=== PATIENT | female | born 2000 | race American Indian/Alaskan Native ===

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

== ENCOUNTER 2019-10-23 13:34 | Emergency (ER) | payer SELFPAY ==
--- NOTE | 2019-10-23 15:20 | Emergency Department Report ---
Chief Complaint: Urogenital-Female Stated Complaint: STD PAIN Time Seen by Provider: 10/23/19 15:15 - HPI History of Present Illness: This is a 19-year-old female nontoxic, well in appearance with no signs of distress presents to the ED for STD recheck. 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 Stated wants to see if it is still there. Stated has some intermittent vaginal irrigation but other denies any pain or ulcers. Patient stated she is asymptotic. Denies any vaginal discharge, testicular pain, or swelling. Patient denies any urinary symptoms. Patient denies any fever, chills, headache, nausea, vomiting, chest pain or shortness of breathe. denies any other symptoms or complaints. Denies any allergies or PMH. - Exam Vital Signs: Vital Signs 10/23/19 14:49 Temperature 97.9 F Pulse Rate 75 Respiratory 16 Rate Blood Pressure 122/62 O2 Sat by Pulse 100 Oximetry Physical Exam: normal physical exam. no pelvic pain. no abdominal pain. no flank pain. no vaginal discharge. no urianry symptoms. MSE screening note: Focused history and physical exam performed. Due to findings the following was ordered: ED Medical Decision Making - Medical Decision Making This is a 19-year-old female that presents with nonmedical emergency complaint. Patient is just requested for a STD test. Patient is being treated for this condition. Patient denies any symptoms. I gave patient many different referrals to follow-up with STD concerns. Patient was instructed to Follow-up with a primary care doctor in 3-5 days or if symptoms worsen and continue return to emergency room as soon as possible. At time of discharge, the patient does n ot seem toxic or ill in appearance. No acute signs of distress noted. Patient agrees to discharge treatment plan of care. No further questions noted by the patient. ED Disposition for MSE Clinical Impression: Possible exposure to STD Disposition: Z- MED SCREENING EXAM-LEFT Is pt being admited?: No Does the pt Need Aspirin: No Condition: Stable Instructions: Safe Sex (ED) Additional Instructions: Follow-up with a primary care doctor in 3-5 days or if symptoms worsen and continue return to emergency room as soon as possible. Referrals: ELLIE STONE MD [Referring] - 3-5 Days LASHONDA RODRIGUEZ MD [Staff Physician] - 3-5 Days
[2019-10-23 21:27] VITALS: BP 122/62
== END 2019-10-23 15:59 | disposition left against medical advice (07) ==
LOC: ED 13:34
DX: N89.8 Other specified noninflammatory disorders of vagina (principal); Z20.2 Contact with and (suspected) exposure to infections with a predominantly sexual mode of transmission; Z53.21 Procedure and treatment not carried out due to patient leaving prior to being seen by health care provider

== ENCOUNTER 2020-12-24 09:02 | Emergency (ER) | payer MEDICAID, OTHER ==
[2020-12-24 09:20] VITALS: BP 98/50
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
[2020-12-24] MEDS ORDERED: IBUPROFEN 800 MG TAB PO ONE (09:43)
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
== END 2020-12-24 10:45 | disposition home or self-care (01) ==
LOC: ED 09:02
DX: S80.00XA Contusion of unspecified knee, initial encounter (principal); Z98.890 Other specified postprocedural states; V89.2XXA Person injured in unspecified motor-vehicle accident, traffic, initial encounter; Y93.89 Activity, other specified; Y92.89 Other specified places as the place of occurrence of the external cause; Y99.8 Other external cause status
CPT/HCPCS: 99283

== ENCOUNTER 2021-01-21 20:50 | Emergency (ER) | payer MEDICAID ==
[2021-01-21 20:59] VITALS: BP 110/69
--- NOTE | 2021-01-21 21:15 | Emergency Department Report ---
ED General Adult HPI - General Chief complaint: Earache Stated complaint: SINUS/THROAT/EAR ISSUES Time Seen by Provider: 01/21/21 21:04 Source: patient Mode of arrival: Ambulatory Limitations: No Limitations - History of Present Illness Initial comments: 20-year-old immunocompetent female patient presents to the emergency department with complaints of sinus pressure, nasal congestion, and left ear discomfort starting 4 days ago. Patient's younger brother was recently diagnosed with RSV. Patient has been using elderberry syrup with no relief. No current steroid or antibiotic use. No recent travel. Patient is unsure whether or not she may be . Denies neck stiffness, fever, vomiting, rash, sore throat, shortness of breath. Denies all other complaints at this time. - Related Data Previous Rx's Medication Instructions Recorded Last Taken Type Cyclobenzaprine HCl [Flexeril 5 MG 5 mg PO TID PRN #10 tab 12/24/20 Unknown Rx TAB] Fluticasone [Flonase] 1 spray NS QDAY #1 bottle 01/21/21 Unknown Rx Allergies Allergy/AdvReac Type Severity Reaction Status Date / Time No Known Allergies Allergy Verified 01/21/21 21:00 ED Review of Systems ROS: Stated complaint: SINUS/THROAT/EAR ISSUES Other details as noted in HPI Other: GENERAL: Negative for fever. ENT: Positive for sinus pressure, nasal congestion, ear discomfort. CARDIOVASCULAR: Negative for chest pain. PULMONARY: Negative for shortness of breath. GASTROINTESTINAL: Negative for abdominal pain. MUSCULOSKELETAL: Negative for back pain. NEUROLOGICAL: Negative for headache. INTEGUMENTARY: Negative for rash. ED Past Medical Hx - Past Medical History Hx Psychiatric Treatment: Yes (anxiety) Additional medical history: multiple shoulder dislocations - Surgical History Additional Surgical History: June 21, benign mass removed from breast - Social History Smoking Status: Never Smoker Substance Use Type: None - Medications Home Medications: Home Medications Medication Instructions Recorded Confirmed Last Taken Type Cyclobenzaprine HCl [Flexeril 5 MG 5 mg PO TID PRN #10 tab 12/24/20 Unknown Rx TAB] Fluticasone [Flonase] 1 spray NS QDAY #1 bottle 01/21/21 Unknown Rx ED Physical Exam - General Limitations: No Limitations - Other Other exam information: General: Awake and alert. No acute distress. Head: Atraumatic, normocephalic. Eyes: EOMI. Pupils are equal and round. Normal sclera and conjunctiva. ENT: Oral mucosa is moist. Normal pharyngeal exam. Nasal congestion. Minimal cerumen to right ear. Tympanic membranes appear normal bilaterally. Neck: Supple. No lymphadenopathy. Pulmonary: No respiratory distress. Clear to auscultation bilaterally. Cardiac: Regular rate and rhythm. Pulses are palpable and equal bilaterally. No lower extremity cyanosis or edema. Skin: Warm and dry. No rashes. Abdomen: Soft, non-tender, non-protuberant. No guarding, rigidity, or rebound. Bowel sounds are normal. No organomegaly or masses noted. Back: Normal alignment. No CVA tenderness. Extremities: Symmetrical. Full range of motion intact. Neurological: Alert and oriented, appropriately interactive, no focal deficits. Psych: Cooperative. Appropriate mood and affect. Speech is evenly metered. Thoughts are logically construed. ED Course Vital Signs 01/21/21 20:55 Temperature 98.3 F Pulse Rate 82 Respiratory 19 Rate Blood Pressure 110/69 O2 Sat by Pulse 100 Oximetry ED Medical Decision Making - Medical Decision Making Differential diagnosis including but not limited to: pharyngitis, otitis media, sinusitis Patient presents to the emergency department with signs/symptoms consistent with sinusitis. She is afebrile, immunocompetent, hemodynamically stable, no hypoxia, no respiratory distress. Patient does not meet criteria for empiric antibiotics due to symptom duration less than 14 days. Patient is unsure whether she may be . Discharged home with prescription for intranasal steroid spray and referred to primary care provider for close outpatient follow- up. Instructed to take an at home test before starting any [id number] cough/cold medications. Patient expressed understanding and is agreeable to plan of care. Disease transmission precautions discussed. Strict return precautions provided. History, exam, diagnostic testing, and current condition do not suggest worrisome pathology to warrant further testing, continued ED treatment, admission, or surgical evaluation at this point. Given the low probability of a significant medical illness, it would be more likely to result in harm than benefit to perform further testing at this stage. Discussed findings, presumptive diagnosis, need for follow-up and specific signs/symptoms that should prompt immediate return to the emergency department. Instructions were explained in detail to the patient in addition to giving written discharge information. Patient expressed understanding and was given the opportunity to ask questions, all of which were satisfactorily answered prior to discharge home. Critical care attestation.: If time is entered above; I have spent that time in minutes in the direct care of this critically ill patient, excluding procedure time. ED Disposition Clinical Impression: Sinusitis Qualifiers: Sinusitis location: unspecified location Chronicity: unspecified Qualified Code(s): J32.9 - Chronic sinusitis, unspecified Disposition: HOME / SELF CARE / HOMELESS Is pt being admited?: No Does the pt Need Aspirin: No Condition: Stable Instructions: Sinusitis, Adult, [id number] Additional Instructions: Take Tylenol every 4 hours as needed for pain. Use Flonase as directed. Take Benadryl at nighttime as directed. Check a test at home before taking any other cough/cold medications. Rest. Drink plenty of fluids. Wash hands frequently to prevent disease transmission. Do not share food or drinks with others. Follow-up with primary care provider this week. Call tomorrow to schedule an appointment. See referral information below. Return to the emergency department immediately for new or worsening symptoms. Prescriptions: Fluticasone [Flonase] 1 spray NS QDAY #1 bottle Referrals: LASHONDA RODRIGUEZ MD [Staff Physician] - 3-5 Days Time of Disposition: 21:20
== END 2021-01-21 21:38 | disposition home or self-care (01) ==
LOC: ED 20:50
DX: J32.9 Chronic sinusitis, unspecified (principal); R09.81 Nasal congestion; H92.02 Otalgia, left ear; Z98.890 Other specified postprocedural states
CPT/HCPCS: 99282